=== PATIENT | male | born 1965 | race Caucasian/White ===

== ENCOUNTER 2019-01-15 13:00 | Outpatient (CLI) | payer BC ==
--- NOTE | 2019-01-15 13:12 | RAD ---
Exam: Chest 2 views HISTORY:Dyspnea Comparison: None FINDINGS: Lungs: Mild left basilar density Cardiac silhouette: Normal size Pulmonary vessels: Normal Pleural Spaces: Added density of the inferior left chest obscures the left costophrenic sulcus Pneumothorax: None Osseous abnormalities: None of acuity. IMPRESSION: Mild pleural fluid versus pleural thickening of the inferior left chest
== END 2019-01-15 13:01 | disposition home or self-care (01) ==
LOC: RAD 13:00
PROVIDERS: ATTEND Internal Medicine Pulmonary Disease
DX: R06.00 Dyspnea, unspecified (principal); R91.8 Other nonspecific abnormal finding of lung field
CPT/HCPCS: 71046

== ENCOUNTER 2022-03-26 07:03 | Outpatient (CLI) | payer BC | END 2022-03-26 07:04 | disposition home or self-care (01) | LOC: BICULT 07:03 | PROVIDERS: ATTEND Family Medicine | DX: R17 Unspecified jaundice (principal) | CPT/HCPCS: 76700 ==